=== PATIENT | female | born 1985 | race Caucasian/White ===

== ENCOUNTER 2024-03-21 10:03 | Emergency (ER) | payer OTHER ==
[2024-03-21] MEDS ORDERED: Sodium Chloride 0.9% 10 ML Syringe FLUSH PRN (10:32)
[2024-03-21] MEDS: Ondansetron 4 MG/2 ML SDV IVPUSH ONE (10:48)
[2024-03-21] MEDS: fentaNYL 100 MCG/2 ML SDV IVPUSH ONE (10:48)
[2024-03-21] MEDS: Sodium Chloride 0.9% 1,000 ML IV STA (10:48)
[2024-03-21 10:50] LABS: BASOPHILS PERCENT AUTO 0.1 % (0.1-1.3); HEMOGLOBIN 14.8 g/dL (11.2-15.5); IMMATURE GRAN ABSOLUTE AUTO 0.03 K/uL (0.00-0.23); IMMATURE GRAN PERCENT AUTO 0.3 % (0.0-0.7); LYMPHOCYTES ABSOLUTE AUTO 0.44 K/uL (0.8-3.3); LYMPHOCYTES PERCENT AUTO 4.1 % (11.4-47.7); MEAN CORPUSCULAR HEMOGLOBIN 31.2 pg (31.6-35.5); MEAN CORPUSCULAR HGB CONC 35.2 g/dL (31.6-35.5); MEAN CORPUSCULAR VOLUME 88.6 fL (81.4-99.0); MONOCYTES ABSOLUTE AUTO 0.25 K/uL (0.20-0.90); MONOCYTES PERCENT AUTO 2.4 % (3.3-12.6); NEUTROPHILS ABSOLUTE AUTO 9.89 K/uL (1.0-7.6); NEUTROPHILS PERCENT AUTO 93.1 % (40.0-78.1); PLATELET COUNT,PLT 241 K/uL (130-375); RED BLOOD CELL COUNT 4.74 M/uL (3.77-5.24); WHITE BLOOD CELL COUNT,WBC 10.6 K/uL (3.2-11.0)
[2024-03-21] MEDS: Sodium Chloride 0.9% 10 ML Syringe FLUSH PRN (10:50)
[2024-03-21 10:52] LABS: BASOPHILS ABSOLUTE AUTO 0.01 K/uL (0.00-0.10)
[2024-03-21 11:07] LABS: A/G RATIO 1.2 (1.2-2.2); ALANINE AMINOTRANSFERASE,ALT 45 U/L (12-78); ALBUMIN 4.2 g/dL (3.4-5.0); ALKALINE PHOSPHATASE 45 U/L (46-116); ANION GAP 12.9 mmol/L (5.0-14.0); ASPARTATE AMNIOTRANSFERASE,AST 22 U/L (15-37); BILIRUBIN TOTAL 0.6 mg/dL (0.2-1.0); BLOOD UREA NITROGEN,BUN 18 mg/dL (7-18); CALCIUM 9.3 mg/dL (8.5-10.1); CARBON DIOXIDE,CO2 23 mmol/L (21-32); CHLORIDE,CL 106 mmol/L (100-108); CREATININE 0.9 mg/dL (0.6-1.0); EST CRCL DRUG DOSING (CG) 77.01 mL/min; ESTIMATED GFR 84 mL/min (>60); GLUCOSE RANDOM 144 mg/dL (74-106); POTASSIUM,K 3.6 mmol/L (3.6-5.2); PROTEIN TOTAL,TP 7.8 g/dL (6.4-8.2); SODIUM,NA 142 mmol/L (140-148)
[2024-03-21] MEDS: HYDROmorphone 1 MG/ML Syringe IVPUSH ONE (11:39)
[2024-03-21] MEDS: droPERidol 5 MG/2 ML SDV IVPUSH ONE (11:40)
[2024-03-21] MEDS: Sodium Chloride 0.9% 80 ML IV SCH (12:19)
[2024-03-21] MEDS: Iopamidol 612 MG/ML 100 ML Bottle IV PRN (12:19)
== END 2024-03-21 13:04 | disposition home or self-care (01) ==
LOC: JP.ED 10:03
DX: R11.2 Nausea with vomiting, unspecified (principal); K21.9 Gastro-esophageal reflux disease without esophagitis; Z79.899 Other long term (current) drug therapy; Z87.891 Personal history of nicotine dependence
CPT/HCPCS: 36415; 74177; 80053; 83605; 83690; 84703; 85025; 96361; 96374; 96375; 99284; J1171; J1790; J2405; J3010; J3490; J7030; Q9967